=== PATIENT | female | born 1985 | race Caucasian/White ===

== ENCOUNTER → 2022-08-13 15:02 | Outpatient (CLI) | payer SELFPAY ==
[2022-08-13 18:38] LABS: Urine N gonorrhoeae NOT DETECTED
[2022-08-13 18:41] LABS: Urine Chlamydia NOT DETECTED
== END ==
PROVIDERS: Visit Provider Obstetrics & Gynecology
DX: Z34.81 Encounter for supervision of other normal pregnancy, first trimester (principal); Z3A.09 9 weeks gestation of pregnancy
CPT/HCPCS: 87491; 87591

== ENCOUNTER → 2022-09-17 12:44 | Outpatient (CLI) | payer OTHER, MEDICAID, SELFPAY ==
[2022-09-17 13:14] LABS: Add Manual Diff / Slide Review NO; Basophils Absolute Auto 0 /uL (0-100); Basophils Percent Auto 0.4 % (0-2); Eosinophils Absolute Auto 0 /uL (0-450); Eosinophils Percent Auto 0.6 % (2-4); Hematocrit 36.7 % (36-46); Hemoglobin 12.8 g/dL (12.0-16.0); Lymphocytes Absolute Auto 1900 /uL (1100-4500); Lymphocytes Percent Auto 27.2 % (25-40); Mean Corpuscular HGB Conc 34.9 % (30-36); Mean Corpuscular Hemoglobin 31.8 PG (26-34); Mean Corpuscular Volume 91.2 fL (80-100); Monocytes Absolute Auto 400 /uL (0-900); Monocytes Percent Auto 5.4 % (3-14); Neutrophils Absolute Auto 4700 /uL (1500-7000); Neutrophils Percent Auto 66.4 % (50-75); Platelet Count 267 X10^3/uL (150-400); Red Blood Cell Count 4.02 X10^6/uL (4.0-5.2); Red Cell Distribution Width 12.3 % (11.6-14.8); White Blood Cell Count 7.1 X10^3/uL (4.5-11.0)
[2022-09-17 14:12] LABS: Appearance Urine UA CLEAR; Bilirubin Urine UA NEGATIVE (NEGATIVE); Color Urine UA YELLOW; Glucose Urine UA NEGATIVE (Negative); Ketones Urine UA 3+ (NEGATIVE); Leukocyte Esterase Urine UA TRACE (NEGATIVE); Nitrite Urine UA NEGATIVE (Negative); Occult Blood Urine UA 2+ (Negative); Protein Urine UA NEGATIVE (Negative); Specific Gravity Urine UA 1.025 (1.000-1.035); Urobilinogen Urine UA 0.2 E.U./dL (0.2)
[2022-09-17 15:29] LABS: Bacteria Urine Occasional (0-1); Mucus Urine 1+ (Negative); RBC Urine 1-5/HPF (0-5/HPF); Squamous Epithelial Cell Urine 1-5 /HPF (0-5/HPF); WBC Urine 1-5/HPF (0-5/HPF)
[2022-09-17 15:30] LABS: Culture Indicated Urine Specimen Cultured
[2022-09-18 07:09] LABS: RPR Screen Non Reactive (Non Reactive)
[2022-09-18 09:24] LABS: Varicella IgG Antibody 908 index (Immune >165)
[2022-09-18 16:40] LABS: HIV 1 & 2 Ab/Ag 4th Gen Combo NEGATIVE (NEGATIVE); Hep C Virus Ab w/Reflex Quant NEGATIVE s/c (NEGATIVE); Hepatitis B Surface Antigen NEGATIVE s/c (NEGATIVE); Rubella Antibody IgG 4.7 IU/mL (>15)
== END ==
PROVIDERS: Referring Provider Obstetrics & Gynecology; Visit Provider Obstetrics & Gynecology
DX: Z34.80 Encounter for supervision of other normal pregnancy, unspecified trimester (principal)
CPT/HCPCS: 36415; 80055; 81003; 81015; 86787; 86803; 86850; 86900; 86901; 87086; 87389

== ENCOUNTER → 2022-10-13 11:54 | Outpatient (CLI) | payer OTHER, MEDICAID, SELFPAY ==
[2022-10-15 21:22] LABS: AFP Value 49.3 ng/mL (.); Insulin Dep Diabetes No (.); OSBR Risk 1IN 10000 (.); Results Report (.); Test Results *Screen Negative* (.)
[2022-10-30 15:17] LABS: PDF SEE SCANS
== END ==
PROVIDERS: Referring Provider Obstetrics & Gynecology; Visit Provider Obstetrics & Gynecology
DX: Z34.02 Encounter for supervision of normal first pregnancy, second trimester (principal); Z3A.17 17 weeks gestation of pregnancy
CPT/HCPCS: 36415; 82105

== ENCOUNTER → 2022-11-10 15:24 | Outpatient (CLI) | payer OTHER, SELFPAY ==
--- NOTE | 2022-11-10 15:27 | DI.US.S_ITS ---
PROCEDURE: US OB >= 14 WEEKS FETUS INDICATIONS: ANATOMY OUTSIDE/PRIOR DATING DATA: Last menstrual period (LMP): 06/10/2022 LMP-based estimated date of delivery (MERY): 03/17/2023 First dating scan (date and location): 08/13/2022 Estimated date of delivery (MERY) from first dating scan: 03/18/2023 The calculations are made using the working MERY of 03/17/2023. TECHNIQUE: Real-time scanning was performed of the fetus, with image documentation and biometric measurements. Endovaginal scanning: Not indicated COMPARISON: None. FINDINGS: General: A single living intrauterine gestation is present. Presentation: Breech Placenta: Placental position is posterior, without previa. Amniotic fluid index: 16.1 cm, normal range is 5-24 cm. Single deepest vertical pocket is 6.1 cm. heart rate: 147 beats per minute. Maternal cervical canal: 3.5 cm long. Normal lower limit is 2.5 cm. biometrics: Biparietal diameter: 5.1 cm, 21 weeks, 4 days. Head circumference: 19.0 cm, 21 weeks, 2 days. Abdominal circumference: 16.3 cm, 21 weeks, 3 days. Femur length: 3.5 cm, 21 weeks, 1 day. Clinically estimated gestational age: 21 weeks, 6 days Composite gestational age from present scan: 21 weeks, 3 days. Estimated weight and percentile: 413 g, 19%. Anatomic survey: Neuro: Ventricles are non-dilated at less than 10 mm. Cisterna magna is normal at 3-11 mm. Cerebellum is normal in size and morphology. Nuchal skin fold: Normal at less than 6 mm between 14-21 weeks gestational age. Face: Nose and lips, facial profile are not well seen. Spine: No evidence for spina bifida. Heart: 4-chambered heart is not well seen, with normal ventricular outflow tracts. Diaphragm: Diaphragm is intact. Stomach: Left-sided stomach is present. Kidneys: No hydronephrosis. Normal is less than 5 mm in 2nd trimester, less than 7 mm in 3rd trimester. Cord: 3-vessel cord has orthotopic insertion. Bladder: Normal in size. Extremities: All 4 extremities identified. IMPRESSION: 1. Single live intrauterine gestation with fetus in breech presentation. heart rate is 147 beats per minute. Normal amount of amniotic fluid. Normal growth. Estimated weight is at 19th percent. 2. four-chamber heart and facial profile are not well seen due to position. Rest of the anatomic survey is normal. We strive to produce accurate, complete, and clear reports of imaging services. To assist us in improving patient care, this report was composed using standard report templates and voice recognition software. Therefore, it may contain abnormal punctuation, insertions and/or omissions. Occasional wrong-word or sound-alike substitutions may occur. Though we review the report and make efforts to correct it, we do recommend that the report be read carefully in proper context to recognize any text inaccuracies. Dictated by: Kiran Coughlin M.D. on 11/11/2022 at 14:24 Approved by: Kiran Coughlin M.D. on 11/11/2022 at 14:27
== END ==
PROVIDERS: Referring Provider Obstetrics & Gynecology; Visit Provider Obstetrics & Gynecology
DX: Z34.82 Encounter for supervision of other normal pregnancy, second trimester (principal); Z3A.21 21 weeks gestation of pregnancy
CPT/HCPCS: 76811

== ENCOUNTER → 2022-11-24 08:33 | Outpatient (CLI) | payer OTHER, MEDICAID, SELFPAY ==
--- NOTE | 2022-11-24 08:35 | DI.US.S_ITS ---
PROCEDURE: US OB FOLLOW UP INDICATIONS: CHAMBERS OF HEART NOT WELL VISUALIZED OUTSIDE/PRIOR DATING DATA: Last menstrual period (LMP): 06/10/2022. LMP-based estimated date of delivery (MERY): 03/17/2023. First dating scan (date and location): 08/13/2022. Estimated date of delivery (MERY) from first dating scan: 03/18/2023. The calculations are made using the clinical MERY of 03/17/2023. TECHNIQUE: Real-time scanning was performed of the fetus, with image documentation. Endovaginal scanning: not performed COMPARISON: [facility], OB >= 14 WEEKS FETUS, 11/10/2022, 15:37. FINDINGS: A single living intrauterine gestation is present. Presentation: Breech. Placenta: Placental position is posterior, without previa. Amniotic fluid index: 16.7 cm, normal range is 5-24 cm. Single deepest vertical pocket is 4.6 cm. heart rate: 147 beats per minute. Maternal cervical canal: 4.8 cm long. Normal lower limit is 2.5 cm. estimated gestational age: 23 weeks 6 days Composite gestational age from the current scan: 23 weeks 2 days. Biometry: Biparietal diameter 5.6 centimeters, 23 weeks 2 days Head circumference 21.1 centimeters, 23 weeks 1 day Abdominal circumference 18.7 centimeters, 23 weeks 3 days Femur length 4.1 centimeters, 23 weeks 3 days Estimated weight 590 grams, 22nd percentile. Normal 4 chamber cardiac view and profile. IMPRESSION: 1. Single living intrauterine in breech presentation. 2. four-chamber cardiac view and profile are now visualized and are within normal limits. Dictated by: Dougie Hall M.D. on 11/24/2022 at 13:03 Approved by: Dougie Hall M.D. on 11/24/2022 at 13:09
== END ==
PROVIDERS: Referring Provider Obstetrics & Gynecology; Visit Provider Obstetrics & Gynecology
DX: Z36.2 Encounter for other antenatal screening follow-up (principal); Z3A.23 23 weeks gestation of pregnancy
CPT/HCPCS: 76816

== ENCOUNTER → 2023-01-26 14:17 | Outpatient (CLI) | payer OTHER, MEDICAID, SELFPAY ==
[2023-01-26 16:03] LABS: Hematocrit 32.7 % (36-46); Hemoglobin 11.5 g/dL (12.0-16.0)
[2023-01-26 16:29] LABS: GTT (PREG) 1 Hour PP 50gm Dose 122 mg/dL (76-139)
== END ==
PROVIDERS: Referring Provider Obstetrics & Gynecology; Visit Provider Obstetrics & Gynecology
DX: Z34.82 Encounter for supervision of other normal pregnancy, second trimester (principal); Z3A.26 26 weeks gestation of pregnancy
CPT/HCPCS: 36415; 82950; 85014; 85018

== ENCOUNTER → 2023-02-16 13:05 | Outpatient (CLI) | payer OTHER, MEDICAID, SELFPAY ==
--- NOTE | 2023-02-16 13:07 | DI.US.S_ITS ---
PROCEDURE: US PERIPH VENOUS LOW EXTREM LT INDICATIONS: PAIN AND SWELLING TECHNIQUE: Real-time imaging, as well as color and pulse Doppler interrogation, were performed of the lower extremity deep veins from the inguinal ligament to the popliteal fossa. COMPARISON: None. FINDINGS: The common femoral, femoral and popliteal veins are normally compressible, and free of intraluminal thrombus. Color and pulse Doppler demonstrate normal phasic intraluminal flow. There is normal augmentation response to distal compression maneuver. Soft tissue edema can be seen at the level of the ankle. IMPRESSION: Negative for deep venous thrombosis. Dictated by: Kilo Ho M.D. on 02/16/2023 at 12:47 Approved by: Kilo Ho M.D. on 02/16/2023 at 12:47
== END ==
PROVIDERS: Referring Provider Obstetrics & Gynecology; Visit Provider Obstetrics & Gynecology
DX: O12.03 Gestational edema, third trimester (principal); O99.891 Other specified diseases and conditions complicating pregnancy; M79.605 Pain in left leg; Z3A.35 35 weeks gestation of pregnancy
CPT/HCPCS: 93971

== ENCOUNTER → 2023-02-24 16:21 | Outpatient (CLI) | payer OTHER, MEDICAID, SELFPAY ==
[2023-02-25 13:44] LABS: Strep Grp B PCR NEG for Grp B Strep
== END ==
PROVIDERS: Visit Provider Obstetrics & Gynecology
DX: Z34.83 Encounter for supervision of other normal pregnancy, third trimester (principal); Z3A.37 37 weeks gestation of pregnancy
CPT/HCPCS: 87653

== ENCOUNTER 2023-03-09 05:48 | Inpatient (IN) | payer OTHER, MEDICAID, SELFPAY ==
[2023-03-09 06:34] LABS: Add Manual Diff / Slide Review NO; Basophils Absolute Auto 0 /uL (0-100); Basophils Percent Auto 0.5 % (0-2); Eosinophils Absolute Auto 100 /uL (0-450); Eosinophils Percent Auto 0.6 % (2-4); Hematocrit 36.1 % (36-46); Hemoglobin 12.4 g/dL (12.0-16.0); Lymphocytes Absolute Auto 1800 /uL (1100-4500); Lymphocytes Percent Auto 20.6 % (25-40); Mean Corpuscular HGB Conc 34.3 % (30-36); Mean Corpuscular Hemoglobin 31.2 PG (26-34); Mean Corpuscular Volume 91.1 fL (80-100); Monocytes Absolute Auto 500 /uL (0-900); Monocytes Percent Auto 5.6 % (3-14); Neutrophils Absolute Auto 6500 /uL (1500-7000); Neutrophils Percent Auto 72.7 % (50-75); Platelet Count 281 X10^3/uL (150-400); Red Blood Cell Count 3.97 X10^6/uL (4.0-5.2); Red Cell Distribution Width 12.8 % (11.6-14.8); White Blood Cell Count 8.9 X10^3/uL (4.5-11.0)
[2023-03-09 06:45] VITALS: BP 142/87
[2023-03-09] MEDS: CITRIC ACID/SODIUM CITRATE 15 ML SOLUTION 30 ML PO (06:57)
--- NOTE | 2023-03-09 07:15 | SUR.OPER ---
Supine on padded OR bed, head on pillow, arms secured on padded arm boards at <90 degrees abduction, right hip roll in place, legs uncrossed, safety belt at thigh, tape over blanket over lower legs.
[2023-03-09] MEDS: LACTATED RINGERS 1,000 ML 999 ML IV (07:25)
[2023-03-09] MEDS: METOCLOPRAMIDE 10 MG/2 ML INJ IV (07:25)
[2023-03-09] MEDS: FAMOTIDINE 20 MG/2 ML VIAL IV (07:25)
--- NOTE | 2023-03-09 07:47 | P.HPOB_ITS ---
OB HPI Date/Time Date of admission: 03/09/23 Date Patient Seen: 03/09/23 Time Patient Seen: 07:47 History of Present Condition Chief complaint: MERY Calculator Estimated Delivery Date Method Current WG Current Estimate 03/17/23 Ultrasound #1 38w 6d Other Estimates 02/16/23 LMP (Certain) 43w 0d 03/18/23 Ultrasound #2 38w 5d Estimated Gestational Age (weeks): 39 : 2 Para: 0 Narrative: Patient is a 38-year-old 2 para 0 who presents for primary sec tion due to severe anxiety regarding labor or being awake for a section. She would like general anesthesia. care: good care, initiated at week #, number of visits and pounds weight gain Dating criteria OB: LMP confirmed by 1st trimester US Ultrasounds: normal 1st trimester US and normal mid trimester US Obstetrical complications: none Medical complications OB: psychiatric (Severe anxiety) Indications Operative indications ( section): other (Severe anxiety about labor or being awake for a section) Preadmission Labs Last OB Lab Results: Blood Type O Positive 09/17/22 12:55 Antibody Screen Negative 09/17/22 12:55 Hematocrit 36.1 % (36-46) 03/09/23 06:00 Hemoglobin 12.4 g/dL (12.0-16.0) 03/09/23 06:00 Hepatitis B Surface Antigen Negative s/c (NEGATIVE) 09/17/22 12 :55 Hepatitis C Antibody Negative s/c (NEGATIVE) 09/17/22 12:55 Rubella Antibody 4.7 IU/mL (>15) L 09/17/22 12:55 Varicella-Zoster IgG Antibody 908 index (Immune >165) 09/17/22 12:55 Glucose 1 Hour 122 mg/dL (76-139) 01/26/23 14:20 Group B Streptococcus (PCR) Neg for grp b strep 02/24/23 16:21 -: Chlamydia screen: negative, Gonorrhea screen: negative and Urine: negative Genetic Screens: Cell-free DNA: Normal (normal female) and Alpha-fetoprotein: Normal External Labs -: Urine: negative Prior (ies) Past Pregnancies Del. Date GA/Weeks Labor Lgth Wt Sex Route Outcome Anesthesia Place Delv Breastfeed Preg Comp Name 01/04/20 14 spontaneous Delivery Date: 01/04/20 Last Updated by: Tori Duvall RN needed D&C Evaluation Evaluation Baseline heart rate: 135 Variability: Moderate (11-25) monitor accelerations: Present Monitor Decelerations: Absent [facility] Medical History (Updated 01/05/23 @ 21:36 by Meghan Webb MD) Freddy's angina Surgical History (Updated 07/22/22 @ 10:01 by Tori Duvall RN) History of breast surgery History of tracheostomy [place] teeth extracted Family History (Updated 07/22/22 @ 10:09 by Tori Duvall RN) Mother Anemia Heart attack Father Stroke Grandfather Diabetes mellitus Grandmother No problems noted. Grandmother No problems noted. Grandfather No problems noted. Family/Other Ovarian cancer Family/Other Cancer Family/Other Prostate cancer Social History marital status: number of children: 0 household members: spouse lives independently: Yes housing: house pets and animals: Yes (1 small dog, doesn't manage clean-up) education level: college (some college) occupational status: employed current occupational exposures/hazards: Yes (works from home) special nate needs: No travel history: recent ([place]; no illness) seatbelt use: always water heater temp set < 120 deg: Yes working smoke detector in home: Yes fire extinguisher in home: Yes carbon monox detector in home: Yes firearms in home: Yes firearms unloaded and locked: Yes do you feel safe at home: Yes Smoking Status: Never smoker second hand exposure: No alcohol intake: former (5-8 glasses wine/day) substance use type: does not use during the past year weight has: remained stable well-balanced diet: daily or most days daily servings fruits/ve-4 caffeine: Yes (Aware of 200 mg limit) Type(s) of exercise: aerobic, regular exercise and running frequency: 5-6 times per week Meds Home Medications and Allergies Home Medications Medication Instructions Recorded Confirmed Type prenat.vits,rafa,qrk-hsxa-zstih 1 tab PO DAILY 07/22/22 03/04/23 History ondansetron HCl 4 mg tablet 4 mg PO Q8H PRN nausea and 09/17/22 03/04/23 Rx vomiting #30 tabs omeprazole 40 mg capsule,delayed 40 mg PO DAILY Acid reflux #30 caps 12/16/22 03/04/23 Rx release pantoprazole 40 mg tablet,delayed 40 mg PO DAILY #30 tabs 02/09/23 03/04/23 Rx release (Protonix) Allergies Allergy/AdvReac Type Severity Reaction Status Date / Time clindamycin Allergy Intermediate Hives Verified 03/04/23 14:22 stargazer kayla Allergy Severe Wheezing Uncoded 03/04/23 14:22 OB Exam Narrative Exam Narrative: Generally: Patient is sitting up in bed, no acute distress Lungs: Clear to auscultation bilaterally Cardiovascular: Regular rate and rhythm Fundal height: 39 cm Estimated weight: 7-1/2 lb Extremities: No edema, 1+ DTRs Objective Labs 03/09/23 06:00 Labs: Laboratory Results - last 24 hr 03/09/23 06:00 WBC 8.9 RBC 3.97 L Hgb 12.4 Hct 36.1 MCV 91.1 MCH 31.2 MCHC 34.3 RDW 12.8 Plt Count 281 Neut % (Auto) 72.7 Lymph % (Auto) 20.6 L [place] % (Auto) 5.6 Eos % (Auto) 0.6 L Baso % (Auto) 0.5 Neut # (Auto) 6500 Lymph # (Auto) 1800 [place] # (Auto) 500 Eos # (Auto) 100 Baso # (Auto) 0 Assessment and Plan Assessment and Plan Assessment and Plan narrative: Assessment: 38-year-old 2 para 0 at an estimated gestational age of 39 weeks Desires primary section due to severe anxiety about labor or being aw trish during a section Plan: Primary low-transverse section under general anesthesia The risks, benefits, and alternatives to the procedure were explained to the patient. The risks including bleeding, infection, injury to the bowel, bladder, or ureters. She also understands that there is a possibility that the baby will get some of the general anesthesia. She understands these risks and agrees to proceed. A full par Q was held and consent form was signed Time Spent with Patient Total time spent with greater than 50% in coordination of care (as documented) at patient's floor/unit and/or counseling patient:: less than 15 minutes
--- NOTE | 2023-03-09 07:52 | PM.PREOP ---
Pre-operative Note COVID-19 Criteria for continued procedure: Non-surgical alternatives not available or appropriate per current SOC Interval Note History & Physical reviewed/Exam performed by Physician: Yes Changes to H&P: No H&P completed within 30 days and has changed as indicated here:: 03/09/23
[2023-03-09] MEDS: CEFAZOLIN 2 GM/100 ML PREMIX 100 ML IV (07:55)
[2023-03-09] MEDS: ACETAMINOPHEN IV 1,000 MG/100 ML VIAL 400 MG IV (08:30)
[2023-03-09] MEDS: SODIUM CHLORIDE IRRIG SOLUTION 1,000 ML, TRANEXAMIC ACID 1,000 MG IRR (08:58)
--- NOTE | 2023-03-09 09:16 | SUR.OPER ---
PLACENTA & CORD BLOOD TUBES SENT WITH Trent Adan. Antionette KEENE
[2023-03-09 09:35] VITALS: BP 147/93; PULSE 80; RESP 16; TEMP 36.8; O2SAT 100
--- NOTE | 2023-03-09 09:38 | P.OP_ITS ---
Operative Date/Time/Diagnoses Date of procedure: 03/09/23 Time of procedure: 09:38 Pre-op diagnosis: Estimated gestational age of 39 weeks Desires elective primary section Desires section under general anesthesia Post-op diagnosis: same Procedure & Clinicians Procedure: Primary low-transverse section Same procedure as scheduled: Yes Indications: Desires primary elective section Desires general anesthesia for Estimated gestational age of 39 weeks Surgeon: Meghan Bowie Yes if Unassisted: No Emissions Testing And Repair Technician: Vijaya Almodovar Reason for Emissions Testing And Repair Technician: The dyer assistant was necessary to retract upon entry into the abdomen and uterus. She assisted with delivery of the infant with fundal pressure. She assisted with closure with retraction, clipping of suture, and closure of the contralateral fascia. Anesthesia Type: General Operative Notes Findings: Live female infant in the LOT presentation Normal uterus, tubes, and ovaries Very thin umbilical cord Very small placenta Closure Type: primary Specimen(s): cord blood and placenta Intraoperative meds administered: Ketorolac, Pitocin and Tranexamic acid Applied: Catheter ( to continuous drainage) Estimated Blood Loss (mL): 600 Blood products transfused: none Procedure in detail: The patient was taken to the operating room where she was placed in the dorsal supine position with a leftward tilt. Torres catheter was placed. She was prepped and draped in the usual sterile fashion. After general endotracheal anesthesia was achieved, a Pfannenstiel skin incision was made 2 fingerbreadths above the pubic symphysis and carried through to the underlying layer of fascia. The fascia was nicked in the midline and the incision extended bilaterally with the Villegas scissors. The superior aspect of the fascial incision was grasped with the Nishant clamps, elevated, and the underlying rectus muscles dissected off sharply and bluntly. Attention was then turned to the inferior aspect of this incision which in a similar fashion was grasped with the Nishant clamps, elevated, and underlying rectus muscles dissected off sharply and bluntly. The rectus muscles were in the midline. The peritoneum was identified, grasped between 2 hemostats, and entered sharply with the Metzenbaum scissors. This incision was extended bluntly. The bladder blade was inserted. The lower uterine segment was incised in a transverse fashion with the scalpel. Upon entering the amniotic sac there was a small amount of clear amniotic fluid. The was delivered without difficulty. The nose and mouth were suctioned with bulb suction. The cord was double clamped and cut and the was handed off to awaiting RN and RT. Cord bloods were obtained. There was found to be a thin umbilical cord. The placenta was removed by expression. The uterus was cleared of all clots and debris. The uterine incision was closed with #1 Chromic in a running interlocking fashion. A second layer the same suture was used for an imbricating layer. The bladder flap was closed using 2-0 Vicryl in a running fashion. There was found to be some bleeding, so the bladder flap was taken down. The uterus was exteriorized. Six [id number] sutures were placed. Hemostasis was achieved. The area was observed for several minutes. There was no bleeding noted. The uterus was returned to the abdomen. The tubes and ovaries were examined and were found to be normal. The gutters were cleared of all clots and debris. The parietal peritoneum was grasped and closed with 2-0 Vicryl in a running fashion. The fascia was reapproximated using 0 Vicryl in a running fashion. The subcutaneous layer was copiously irrigated with warm normal saline. Five simple interrupted sutures with 3-0 Vicryl were placed to reapproximate. The skin was closed with 4-0 Monocryl in a subcuticular fashion. Steri-Strips and an Aquacel dressing were placed. The uterus was expressed of a moderate amount of old blood. Sponge, lap, and instrument counts were correct x2. The patient tolerated the procedure well, and was taken to PACU in stable condition. Complications: none Cameron Baby 1: Gender: Female Presentation: vertex Position: Left Occiput Transverse Placental Delivery Description: Expressed Cord Vessel Description: 3 Vessels (very thin cord) score (1 min): 7 score (5 min): 9 weight: 4 lb 11 oz Post-operative Condition: stable Disposition: PACU Aftercare: routine postop
[2023-03-09 09:40] VITALS: BP 158/104; PULSE 72; RESP 14; O2SAT 100
[2023-03-09] MEDS: HYDROMORPHONE 2 MG INJ IV ×2 (09:44→10:02)
[2023-03-09 09:46] VITALS: BP 169/99; PULSE 63; RESP 16; O2SAT 100
[2023-03-09 09:51] VITALS: BP 148/91; PULSE 63; RESP 12; O2SAT 100
[2023-03-09] MEDS: LORazepam 2 MG/ML INJ 0.5 MG IV (10:07)
[2023-03-09 10:10] VITALS: BP 148/100; PULSE 66; RESP 10; O2SAT 100
[2023-03-09] MEDS: OXYCODONE IR 5 MG TABLET PO ×2 (10:27→21:07)
--- NOTE | 2023-03-09 10:28 | SUR.PHASEI ---
Pt reported numbness in her mouth, Dr. Dow was notified, no new orders. Pt has reported that numbness has resolved.
--- NOTE | 2023-03-09 10:47 | SUR.PHASEII ---
Report called and given to Center RN, Yessica. Pt was brought to 3 at approx. 1040 in . VSS Fundus was at 3 fingers bellow the umbilicus and was firm. Lochia was small amt on peripad.
[2023-03-09] MEDS: MORPHINE 2 MG/ML INJ IV ×2 (12:11→16:56)
[2023-03-09] MEDS: KETOROLAC 30 MG/ML VIAL IV ×2 (14:35→20:00)
[2023-03-09] MEDS: ACETAMINOPHEN 325 MG TABLET 650 MG PO ×2 (14:36→20:00)
[2023-03-09] MEDS: OXYCODONE IR 10 MG TABLET PO ×2 (18:02→22:06)
[2023-03-10] MEDS: KETOROLAC 30 MG/ML VIAL IV (01:57)
[2023-03-10] MEDS: ACETAMINOPHEN 325 MG TABLET 650 MG PO ×3 (01:58→19:42)
[2023-03-10] MEDS: OXYCODONE IR 10 MG TABLET PO ×5 (01:59→20:04)
[2023-03-10] MEDS: OXYCODONE IR 5 MG TABLET PO (03:58)
[2023-03-10 06:40] LABS: Add Manual Diff / Slide Review NO; Basophils Absolute Auto 0 /uL (0-100); Basophils Percent Auto 0.2 % (0-2); Eosinophils Absolute Auto 0 /uL (0-450); Eosinophils Percent Auto 0.3 % (2-4); Hemoglobin 8.1 g/dL (12.0-16.0); Lymphocytes Absolute Auto 2200 /uL (1100-4500); Mean Corpuscular HGB Conc 35.3 % (30-36); Mean Corpuscular Hemoglobin 31.6 PG (26-34); Mean Corpuscular Volume 89.6 fL (80-100); Monocytes Absolute Auto 600 /uL (0-900); Monocytes Percent Auto 5.6 % (3-14); Neutrophils Absolute Auto 7700 /uL (1500-7000); Neutrophils Percent Auto 72.9 % (50-75); Platelet Count 229 X10^3/uL (150-400); Red Blood Cell Count 2.56 X10^6/uL (4.0-5.2); Red Cell Distribution Width 12.9 % (11.6-14.8); White Blood Cell Count 10.5 X10^3/uL (4.5-11.0)
[2023-03-10] MEDS: IBUPROFEN 600 MG TABLET PO ×2 (14:08→19:41)
[2023-03-10] MEDS: DOCUSATE 100 MG CAPSULE PO (21:46)
[2023-03-10] MEDS: ZOLPIDEM 5 MG TABLET 10 MG PO (21:46)
[2023-03-10] MEDS: SIMETHICONE 80 MG TABLET 160 MG PO (21:46)
[2023-03-11] MEDS: ACETAMINOPHEN 325 MG TABLET 650 MG PO ×2 (03:27→08:53)
[2023-03-11] MEDS: IBUPROFEN 600 MG TABLET PO ×2 (03:28→08:53)
[2023-03-11] MEDS: OXYCODONE IR 10 MG TABLET PO ×2 (03:29→08:52)
[2023-03-11] MEDS: PRENATAL VIT,CALC/IRON/FOLIC 1 TABLET 1 TAB PO (08:53)
[2023-03-11] MEDS: DOCUSATE 100 MG CAPSULE PO (08:53)
[2023-03-11] MEDS: SIMETHICONE 80 MG TABLET 160 MG PO (08:54)
--- NOTE | 2023-03-16 21:32 | P.PNOB_ITS ---
Subjective - OB Subjective Patient comments: no complaints and incisional pain [place] baby status: doing well feeding status: exclusively bottle feeding Date Patient Seen: 03/10/23 Time Patient Seen: 07:30 Interval history: Patient is a 38-year-old 2 para 1 postop day # 1 status post elective primary section under general anesthesia. Patient is bottle feeding. Tolerating a diet. Having some incisional pain. No nausea or vomiting. Torres catheter just out. Exam Vital Signs (past 8 hours): Oxygen Delivery Method Room Air Narrative Exam Narrative: Generally: Patient is sitting up in bed, no acute distress Fundus: Firm at U -2 Incision: Clean dry and intact with Aquacel Extremities: No edema, negative Homans Objective Labs 03/10/23 06:19 Assessment & Plan Plan day: 1 plan OB: routine postop care Time Spent With Patient Time: Total time spent is greater than 50% in coordination of care (as documented) at patient's floor/unit and/or counseling patient: Time with patient: less than 15 minutes
--- NOTE | 2023-03-16 21:34 | PM.OBDS.1 ---
Discharge Providers Provider Date of admission: 03/09/23 05:48 Discharge Date: 03/11/23 Primary care physician: Doctor Monisha MD Consults: 03/09/23 10:06 Consult to Client Support Consultant Routine Comment: Discharge provider: Meghan Webb MD Summary Hospital Course Date Patient Seen: 03/11/23 Time Patient Seen: 07:30 Diagnoses: Estimated gestational age of 39 weeks Elective primary section Hospital Course: Patient is a 38-year-old 2 para 1 who presented on March 09, 2023 for a scheduled primary elective section under general anesthesia. She underwent this procedure without complication. Her postoperative course was unremarkable. She was discharged home on postop day # 2. She was tolerating a diet, pain is well controlled, no nausea or vomiting, she was ambulating independently, bottle feeding was going well. Peripartum Data Delivery Method: Section Procedures: General anesthesia Primary elective section complications: none 1: Gender: Female Disposition of : home Status at Discharge Cognitive/behavioral status at discharge: oriented Functional status at discharge: independent ambulation Overall status at discharge: patient is progressing back to baseline Time Spent with Patient Time attestation: Total time spent providing and/or coordinating discharge services: Time spent: Less than 30 minutes Objective Labs 03/10/23 06:19 Exam Vital Signs (past 8 hours): Oxygen Delivery Method Room Air Narrative Exam Narrative: Generally: Patient is sitting up in bed, no acute distress Lungs: Clear to auscultation bilaterally Cardiovascular: Regular rate and rhythm Fundus: Firm at U -3 Incision: Clean dry and intact with Aquacel dressing Extremities: No edema, negative Homans Discharge Plan Discharge Plan Patient Disposition: Home Provider Discharge Comment: Call with fever, chills, redness or drainage around the incision or bleeding vaginally more than a pad in an hour Ibuprofen 600mg every 6 hours as needed Tylenol 650mg every 6 hours as needed Stool softners as needed Discharge orders & Medications Prescriptions: New oxycodone 5 mg tablet 5 mg PO Q4H PRN (Reason: pain) Qty: 20 0RF Continued prenat.vits,rafa,[id number]-xahm-adwko Tablet 1 tab PO DAILY Discontinued omeprazole 40 mg capsule,delayed release(DR/EC) 40 mg PO DAILY Qty: 30 0RF pantoprazole 40 mg tablet,delayed release (DR/EC) See Rx Instructions .ROUTE .COMPLEX Qty: 30 0RF Dose Instruction: TAKE ONE TABLET BY MOUTH ONE TIME DAILY Rx Instructions: TAKE ONE TABLET BY MOUTH ONE TIME DAILY ondansetron HCl 4 mg tablet 4 mg PO Q8H PRN (Reason: nausea and vomiting) Qty: 30 2RF Follow up/Referrals: Meghan Webb MD [Physician] - (Your dressing removal/incision check appointment with Dr. Webb is scheduled on March 16 @3:30pm. You six week follow up appointment with Dr. Saavedra is scheduled on April 20 @11:30am.) Doctor Bearden MD [Primary Care Provider] - Diet/Activity/Treatments Diet: Regular Activity: No heavy lifting Skin/Wound/Dressing Care Report to your healthcare provider any signs of infection, such as:: chills, fever, increased pain, unusual drainage and unusual redness Dressing: Do not remove Visit Report/Discharge Packet Instructions: DI for , DI for Depression, DI for Prescription Opioid Use Stand Alone Forms: Discharge: Care, Patient Portal/API, Stroke Signs & Symptoms Discharge Data Primary Care Provider: Doctor Monisha Discharges patient from system. Discharge Date/Time: 03/11/23 11:35
== END 2023-03-11 11:35 | disposition home or self-care (01) | DRG 540 ==
PROVIDERS: Admitting Provider Obstetrics & Gynecology; Referring Provider Obstetrics & Gynecology; Visit Provider Obstetrics & Gynecology
PROC: 10D00Z1 Extraction of Products of Conception, Low, Open Approach (ICD-10-PCS; CPT 59514; principal; 2023-03-09 07:45)
DX: O99.344 Other mental disorders complicating childbirth (principal); F41.9 Anxiety disorder, unspecified; Z37.0 Single live birth; Z3A.39 39 weeks gestation of pregnancy
CPT/HCPCS: 36415; 59050; 59514; 85025; 86850; 86900; 86901; J0131; J0690; J1100; J1170; J1885; J2060; J2250; J2270; J2405; J2704; J2765; J3010